=== PATIENT | male | born 1945 | race Caucasian/White ===

== ENCOUNTER → 2021-02-28 | Outpatient (CLI) | payer MEDICARE, OTHER ==
[~2021-02-28] MED LIST: ELIQUIS 2.5 MG2.5 MG PO; HYDROCODON-ACE1 EAC2 PO; LISINOPRIL20 MG PO; LO-DOSE ASPIRIN81 MG PO; LOPRESSOR50 MG PO; STOOL SOFTENER100 M1 PO
[2021-02-28 09:39] LABS: HEMOGLOBIN 17.1 gm/dl (14.0-17.5); RED BLOOD COUNT 5.23 M/UL (4.20-5.50); WHITE BLOOD COUNT 8.3 K/UL (4.5-11.0)
[2021-02-28 09:57] LABS: BUN/CREATININE RATIO 20 (0-10)
== END ==
LOC: OPSV2 08:30 → EDSTATUS 08:30 → OPSV2 08:48
PROVIDERS: Orthopaedic Surgery
DX: Z01.818 Encounter for other preprocedural examination (principal); M17.11 Unilateral primary osteoarthritis, right knee; Z88.8 Allergy status to other drugs, medicaments and biological substances; R91.8 Other nonspecific abnormal finding of lung field
CPT/HCPCS: 36415; 71046; 80048; 81001; 85025; 87081

== ENCOUNTER 2021-03-15 05:55 | Day surgery (SDC) | payer MEDICARE, OTHER ==
[~2021-03-15] VITALS: Ht 177.8 cm; Wt 82.6 kg
[~2021-03-15 05:55] MED LIST changes: -ELIQUIS 2.5 MG2.5 MG PO; -HYDROCODON-ACE1 EAC2 PO
[2021-03-15 07:42] LABS: BUN/CREATININE RATIO 18 (0-10)
[2021-03-15] MEDS ORDERED: HYDROCODON-ACE1 EAC2 PO (11:35)
[2021-03-16 02:43] LABS: HEMOGLOBIN 14.1 gm/dl (14.0-17.5); RED BLOOD COUNT 4.61 M/UL (4.20-5.50); WHITE BLOOD COUNT 16.8 K/UL (4.5-11.0)
[2021-03-16 03:04] LABS: BUN/CREATININE RATIO 18 (0-10)
[2021-03-16] MEDS ORDERED: ELIQUIS 2.5 MG2.5 MG PO (13:18)
== END 2021-03-16 18:30 | disposition home or self-care (01) ==
LOC: OR 05:55 → M/S 05:55 → EDSTATUS 12:30 → M/S 13:54 → OR 03-16 18:30
PROVIDERS: Orthopaedic Surgery
DX: M17.11 Unilateral primary osteoarthritis, right knee (principal); G89.18 Other acute postprocedural pain; I25.10 Atherosclerotic heart disease of native coronary artery without angina pectoris; Z95.5 Presence of coronary angioplasty implant and graft; I10 Essential (primary) hypertension; Z79.82 Long term (current) use of aspirin
CPT/HCPCS: 36415; 73560; 80048; 82962; 85025; 86850; 86900; 86901; 93005; 97116-GP-CQ; 97161; 97166; 97535; C1776; J0171; J0690; J1100; J1170; J2001; J2370; J2405; J2704; J2795; J3010; J3370; J7120